=== PATIENT | female | born 1985 | race Caucasian/White ===

== ENCOUNTER 2023-12-11 12:34 | Outpatient (REF) | payer SELFPAY ==
[2023-12-11 13:20] LABS: MANUAL DIFF FLAG NO
[2023-12-11 13:49] LABS: Basophils Absolute Auto 0.1 X10*3/uL (0.0-0.2); Basophils Percent Auto 0.9 % (0-2); Eosinophils Absolute Auto 0.1 X10*3/uL (0.0-0.4); Eosinophils Percent Auto 0.8 % (0-4); Hematocrit 38.6 % (37.0-47.0); Hemoglobin 12.3 g/dl (12.0-16.0); Imm Gran Abs Auto 0.02 X10*3/uL (0.00-0.03); Imm Gran Pct Auto 0.2 % (0.0-0.4); Lymphocytes Absolute Auto 2.8 X10*3/uL (1.2-4.9); Lymphocytes Percent Auto 33.4 % (20-40); Mean Corpuscular HGB Conc 31.9 g/dl (31.0-35.0); Mean Corpuscular Hemoglobin 28.7 pg (27.0-33.0); Mean Platelet Volume 10.6 fL (9.4-12.3); Monocytes Absolute Auto 0.5 X10*3/uL (0.1-1.2); Monocytes Percent Auto 5.6 % (2-11); Neutrophils Percent Auto 59.1 % (45-73); Platelet Count 287 X10*3/uL (160-400); Red Blood Count 4.29 X10*6/uL (4.20-5.50); Red Cell Distribution Width 13.5 % (11.0-16.0); White Blood Count 8.5 X10*3/uL (4.8-10.8)
[2023-12-11 14:08] LABS: Estimated Average Glucose 100 mg/dL; Hemoglobin A1c % 5.1 % (<6.0)
[2023-12-11 14:22] LABS: Alanine Aminotransferase 10 U/L (0-31); Albumin Level 4.2 g/dL (3.5-5.0); Alkaline Phosphatase 82 U/L (39-117); Anion Gap 11 (12-20); Aspartate Amino Transferase 15 U/L (5-31); Bilirubin Total 0.4 mg/dL (0.0-1.0); Blood Urea Nitrogen 10 mg/dL (9-16); Calcium 9.1 mg/dL (8.4-10.2); Carbon Dioxide 26 mmol/L (22-29); Chloride 108 mmol/L (96-108); Cholesterol 160 mg/dL (<200); Estimated Glomerular Filt Rate > 60; Glucose Random 82 mg/dL (60-115); HDL Cholesterol 49 mg/dL (>40); LDL Cholesterol Calculated 99 mg/dL (<100); Sodium 141 mmol/L (135-145); TSH reflex Free T4 1.38 uIU/mL (0.32-4.0); Total Protein 7.5 g/dL (6.5-8.0); Triglycerides 62 mg/dL (<150); Vitamin D 25-OH Total 36.5 ng/mL (>30)
[2023-12-11 14:49] LABS: Folate 11.8 ng/mL (> or = 4.0); Vitamin B12 472 pg/mL (200-900)
[2023-12-12 07:38] LABS: HBS Num1 0.41 mIU/mL (0-7.99); HBc Num1 0.18 S/CO (0.00-0.79); HBsAGNum1 0.27 S/CO (0.00-0.99); HIV AB/AG Nonreactive (Nonreactive); HIV Num 1 0.07 S/CO (0.00-0.99); Hepatitis B Core Antibody Nonreactive (Nonreactive); Hepatitis B Surface Antigen Negative (Negative); ~Hepatitis B Surface Antibody NONREACTIVE (Nonreactive)
[2023-12-13 06:39] LABS: RPR Rapid Plasma Reagin NON-REACTIVE (NON-REACTIVE)
[2023-12-13 06:42] LABS: HCV Log PCR <1.18 NOT DETECTED Log IU/mL (NOT DETECTED); HepC Viral Load <15 NOT DETECTED IU/mL (NOT DETECTED)
== END 2023-12-11 12:35 | disposition home or self-care (01) ==
LOC: HO.HHCL 12:34
PROVIDERS: Visit Provider Registered Nurse
DX: Z00.00 Encounter for general adult medical examination without abnormal findings (principal); R20.0 Anesthesia of skin; R20.2 Paresthesia of skin; Z13.1 Encounter for screening for diabetes mellitus; Z13.89 Encounter for screening for other disorder
CPT/HCPCS: 36415; 80053; 80061; 82306; 82607; 82746; 83036; 83735; 84443; 85025; 86592; 86704; 86706; 87340; 87389; 87522

== ENCOUNTER 2024-06-10 12:45 | Outpatient (REF) | payer MEDICAID, SELFPAY ==
[2024-06-11 07:11] LABS: CT PCR NOT DETECTED (Not Detect.); NG PCR NOT DETECTED (Not Detect.)
[2024-06-11 08:26] LABS: Bacterial Vaginosis PCR NEGATIVE (Negative); Candida Group PCR NOT DETECTED (Not Detect); Candida glab krusei PCR NOT DETECTED (Not Detect); Trichomonas vaginalis PCR NOT DETECTED (Not Detect)
== END 2024-06-10 12:46 | disposition home or self-care (01) ==
LOC: HO.CHCLNP 12:45
PROVIDERS: Visit Provider Registered Nurse
DX: N93.0 Postcoital and contact bleeding (principal)
CPT/HCPCS: 0352U; 87491; 87591

== ENCOUNTER 2024-06-10 15:36 | Outpatient (REF) | payer MEDICAID, SELFPAY ==
[2024-06-10 18:02] LABS: Appearance Urine Clear; Color Urine Yellow; Glucose Urine UA Negative (Negative); Leukocyte Esterase Urine Trace (Negative); Nitrite Urine Negative (Negative); PH 6.5 (5.0-9.0); Specific Gravity - Urine 1.025 (1.005-1.025); UMIC TRIGGER UACC YES; Urine Blood Negative (Negative); Urine Ketones Negative (Negative); Urine Protein Negative (Neg-Trace)
[2024-06-10 18:17] LABS: Bacteria Urine 1+ (None Seen); Hyaline Casts Urine 0-2 /LPF (0-2); RBC Urine 0-2 /HPF (0-2); UACC Culture Trigger YES
== END 2024-06-10 15:37 | disposition home or self-care (01) ==
LOC: HO.CHCLNP 15:36
PROVIDERS: Visit Provider Registered Nurse
DX: R39.9 Unspecified symptoms and signs involving the genitourinary system (principal)
CPT/HCPCS: 81001; 87086

== ENCOUNTER 2025-02-18 09:04 | Outpatient (REF) | payer MEDICAID, OTHER, SELFPAY ==
--- OUTSIDE RECORDS SUMMARY | 2025-02-17 15:00 | XMS_ITS | Encounter Summary ---
Author Organization [employer] Address [address] [facility] 7t [place] [address] Care Team Providers Care Field Professional Name Role Phone Coral Best SEEMA Primary Care Provider [phone] Reason for Visit * Reason Comments Dental Pain Encounter Details Date Type Department Care Team ([facility] st Contact Info) Description 02/17/2025 3:00 PM EDT Office Visit Kimber [facility] Dental [address] [place] [address] Malina Potts LLD [address] [place] [address] Arrived Social History Tobacco Use Types Packs/Day Years Used Date Smoking Tobacco: Never Smokeless Tobacco: Never Depression Answer Date Recorded Patient Health Questionnaire-9 Score 4 07/11/2024 Patient Health Questionnaire-9 Score 4 07/11/2024 Last PHQ-9: Questionnaire Data Not on file 0 07/11/2024 Housing Stability Answer Date Recorded What is your housing situation today? I have jessica petersen 06/10/[address] you li ve. Do you have problems with any of the following? None of the above 06/10/2024 Food Insecurity Answer Date Recorded Within the past 12 months, y ou worried that your food would run out before you got money to buy more: Never True 06/10/2024 Within the past 12 months,th e food you bought just didn't last and you didn't have enough money to get more: Never True Transportation Answer Date Recorded In the past 12 months, has l ack of transportation kept you from medical appts, meetings, work or from getting things needed for daily living? No 06/10/2024 Utilities Answer Date Recorded In the past 12 months, has t he electric, gas, oil or water company threatened to shut off services in your home? No 06/10/2024 Depression Answer Date Recorded Patient Health Questionnaire-2 Score 2 07/11/2024 Internet Access Answer Date Recorded Internet Access Q1 Yes 06/10/2024 Internet Access Q2 Not on file 06/10/2024 Comments Unknown Sex and Gender Information Value Date Recorded Sex Assigned at Female 04/11/2022 10:30 AM EDT Legal Sex Female 10:30 AM EDT Gender Identity Female 04/11/2022 10:30 AM EDT Sexual Orientation Straight 04/11/2022 10 :30 AM EDT documented as of this encounter Last Filed Vital Signs Vital Sign Reading Time Taken Comments Blood Pressure 125/85 02/17/2025 2:36 PM EDT Pulse 65 02/17/2025 2:36 PM EDT Temperature - - Respiratory Rate - - Oxygen Saturation - - Inhaled Oxygen Concentration - - Weight - - Height - - Body Mass Index - - documented in this encounter Progress Notes * SOHAIL Solorzano - 02/17/2025 3:00 PM EDT Regulatory guidelines from CDC, DPH, OSHA and ADA were followed during the visit. Emergency Exam Tooth # 14 Patient presents with PAIN Probable cause - Periapical abscess Pain scale of 3 Number of Xray's taken none due, pt recently evaluated at [facility] Patient is currently taking OTC Pain medicine and antibiotic for this condition. Area has been a problem for a week Patient mostly concerned to extraction planned for tooth #14 and how her denture would stay in mouth for partial clasps on tooth #14, instructions on how to use adhesive and was placed on the partialwhile in the office Dismiss Note Oven Builder: Dental Care and patient education provided and emphasized Referral No Oral cancer screening: No significant oral pathology noted. Patient left understanding directions for care Phase I Completed? No Came to visit with : N/A Next Visit - FMX Exam documented in this encounter Plan of Treatment Upcoming Encounters Date Type Department Care Team (Late st Contact Info) Description 02/24/2025 2:45 PM EDT Office Visit [facility] CHC MED & PEDS [address] [place] [address] Coral Best FNP [address] [place] [address] 04/04/2025 9:00 AM EDT Office Visit [facility] ADULT DENTAL [address] [place] [address] Reji Kulkarni DDS [address] [place] [address] documented as of this encounter Procedures Procedure Name Priority Date/Time Associated Diagnosis Comments LIMITED ORAL EVALUATION - PROBLEM FOCUSED Routine 02/17/2025 3:00 PM EDT CASE PRESENTATION, DETAILED AND EXTENSIVE TREATMENT PLANNING Routine 02/17/2025 3:00 PM EDT documented in this encounter Visit Diagnoses Not on filedocumented in this encounter Additional Health Concerns Assessment Noted Time PHQ-9 Depression Total Score: 4 07/11/19 25 9:09 AM EST documented as of this encounter Care Teams Field Professional Relationship Specialty Start Date End Date Coral Best FNP [address] [place] [phone] PCP - General Family Medicine 02/04/22 documented as of this encounter
--- NOTE | 2025-02-18 09:09 | EMG_ITS ---
Chief complaint: Numbness and tingling of hands Reason for referral: NCV/ EMG study Referred by: SEEMA Martinez Procedure done: NCV and EMG was performed on bilateral upper extremities. Bilateral median and ulnar motor and sensory studies were performed bilateral radial sensory studies were performed bilateral median and lateral antecubital brachial sensory studies were performed an EMG needle examination was performed. Impression: Mild left ulnar neuropathy across elbow MTDD
--- OUTSIDE RECORDS SUMMARY | 2025-02-18 10:25 | XMS_ITS | Encounter Summary ---
Author Organization [facility] Address [address] [facility] [address] [place] [phone] Phone Care Team Providers Care Food Scientist Name Role Phone Bairon Narayanan MD Primary Care Provider Pcp, Unknown Primary Care Provider Unavailabl e Encounter Details Date Type Department Care Team (Late st Contact Info) Description 01/14/2020 Procedure [facility], Ct Scan - [address] [address] Social History Tobacco Use Types Packs/Day Years Used Date Smoking Tobacco: Never Smokeless Tobacco: Never Alcohol Use Standard Drinks/Week Comments Never 0 (1 standard drink = 0.6 oz pur e alcohol) Comments Unknown Sex and Gender Information Value Date Recorded Sex Assigned at Female 09/14/2019 8:47 AM EDT Legal Sex Female 3:46 PM EDT Gender Identity Female 09/14/2019 8:47 AM EDT Sexual Orientation Straight 01/13/2020 11 :46 PM EDT documented as of this encounter Plan of Treatment Not on file documented as of this encounter Visit Diagnoses Not on filedocumented in this encounter Additional Health Concerns Infection Onset Date Last Indicated Resolved Time CoV-Risk 12/15/2024 12/15/2024 12/26/2024 1:21 AM EDT documented as of this encounter Care Teams Food Scientist Relationship Specialty Start Date End Date Bairon Narayanan MD [address] [place] [address], [address] [place] [address] PCP - General Internal Medicine 10/18/17 12/07/21 Pcp, Unknown PCP - General 12/08/21 documented as of this encounter Additional Source Comments The information contained in this document represents components of the legal health record. It is not the complete legal health record.[facility]
--- OUTSIDE RECORDS SUMMARY | 2025-02-18 10:25 | XMS_ITS | Clinical Summary ---
Author Organization [employer] Address [address] [facility] 7t [place] [address] Care Team Providers Care Clinical Unit Educator Name Role Phone Coral Best SEEMA Primary Care Provider [phone] Allergies No known active allergies Medications * This document contains information received from the source organization and may not represent a complete record from that organization. amitriptyline (Elavil) 10 MG tabletIndication s:Acute non intractable tension-type headache Take 1 tablet (10 mg) by mouth at bedtime. 90 tablet 3 5 Active ibuprofen 400 MG tabletIndication s:Syncope, unspecified syncope type Take 1 tablet (400 mg) by mouth every 8 (eight) hours if needed (pain or fever). 90 tablet 1 5 12/24/19 26 Active acetaminophen (Tylenol) 500 MG tabletIndication s:Syncope, unspecified syncope type Take 1-2 tablets (500-1,000 mg) by mouth every 8 (eight) hours if needed (pain or fever). 90 tablet 1 5 12/24/19 26 Active amoxicillin-clav ulanate (Augmentin) 875-125 MG tablet Take 1 tablet by mouth 2 times daily for 7 days. 14 tablet 5 02/15/20 25 acetaminophen (Tylenol) 500 MG tablet Take 1 tablet (500 mg) by mouth every 8 (eight) hours if needed for mild pain for up to 7 days. 21 tablet 5 02/15/20 25 ibuprofen 600 MG tablet Take 1 tablet (600 mg) by mouth every 8 (eight) hours if needed for mild pain for up to 7 days. 21 tablet 08/2902/15/20 25 Active Problems Problem Noted Date Diagnosed Date Chronic back pain 02/07/2025 Lumbago with sciatica, left side 02/07/2025 Other chronic pain 02/07/2025 Healthcare maintenance 12/14/2023 Overview (06/13/2024): - Pap: NILM, HPV neg Jul 2021 - Mammo: routine screening starting at 40 y/o - Colonoscopy: routine screening starting at 45 y/o Assessment & Plan (06/13/2024 6:52 PM EST): -Cardiopulmonary exam WNL -Encouraged healthy lifestyle habits including routine physical exercise and diet rich in fruits and vegetables Assessment & Plan (12/14/2023 4:32 PM EDT): -Routine lab work ordered today including asymptomatic STI screening and additional vitamin/mag screening for numbness/tingling Acute non intractable tension-type headache 06/14 Overview (12/14/2023): Amitriptyline 10mg nightly Assessment & Plan (06/13/2024 6:49 PM EST): - Well controlled with current regimen Assessment & Plan (12/14/2023 4:25 PM EDT): Previously well controlled on therapy above. Restart amitriptyline, reviewed med safety and SE. Obesity 09/11/2017 Chronic low back pain 12/19/2016 Adjustment disorder with depressed mood 05/09/20 16 Resolved Problems Problem Noted Date Diagnosed Date Resolved Date Low self-esteem 07/24/2024 12/23/2024 Numbness and tingling in both hands 12/14/2023 06/13/2024 Assessment & Plan (12/14/2023 4:28 PM EDT): -Intermittent pain associated with numbness and tingling in fingers of bilateral hands -Positive Tinel on exam -Suspect CTS. Discussed next steps for eval/tx, but pt limited d/t insurance. She will call insurance for coverage/cost estimate of EMG and let us know if interested in pursuing -DME rx for bilateral wrist splints sent 12/14/23 for pt to use at night -Continue symptomatic management Acute stress disorder 07/11/20222024 Assessment & Plan (06/13/2024 6:51 PM EST): -History of depression/anxiety. No acute concerns today. Scheduled for BE in person. Assessment & Plan (12/14/2023 4:26 PM EDT): -History of stress/anxiety. No acute concerns. Time did not permit for BE in office today, referral placed to [facility] to schedule BE for further eval. Cough in adult 07/11/2022 12/14/2023 Encounters Date Type Department Care Team Description 02/17/2025 3:00 PM EDT Office Visit Kimber [facility] Dental [address] [place] [address] Malina Potts LLD Arrived 02/14/2025 Patient Outreach [facility] MEDICINE [address] [place] [address] Coral Best FNP Pre-visit Planning (SDOH screening negative and Tobacco screening negative) 02/07/2025 1:00 PM EDT Office Visit [facility] ADULT DENTAL [address] [place] [address] Reji Kulkarni DDS 12/23/2024 9:30 AM EDT Office Visit [facility] MED & PEDS [address] [place] [address] Coral Best FNP Syncope, unspecified syncope type (Primary Dx); Numbness and tingling of hand 12/23/2024 Travel 12/18/2024 Telephone [facility] MED & PEDS [address] [place] [address] Coral Best FNP Nurse Triage from Last 3 Months Immunizations Immunization Administration Dates Next Due Hep B, adult 06/26/2024,02/05/2024,12/25/2023 Influenza Injectable Quadriv alant Preservative Free IIV4 MDCK 04/09/2019 Influenza injectable quadriv alent IIV4 with preservative 05/09/2016 Influenza injectable quadriv alent preservative free 03/11/2021,06/14/2017 Influenza, IIV3, injectable 08/21/2018 Tdap 06/14/2017 Family History Medical History Relation Name Comments Diabetes Father Diabetes Father's Sister Diabetes Mother Hypertension Mother Relation Name Status Comments Father Father's Sister Mother Social History Tobacco Use Types Packs/Day Years Used Date Smoking Tobacco: Never Smokeless Tobacco: Never Tobacco Cessation:Counseling Given: Not Answered Depression Answer Date Recorded Patient Health Questionnaire-9 [...] Orientation Straight 04/11/2022 10 :30 AM EDT Last Filed Vital Signs Vital Sign Reading Time Taken Comments Blood Pressure 125/85 02/17/2025 2:36 PM EDT Pulse 65 02/17/2025 2:36 PM EDT Temperature 36.8 C (98.2 F) 12/23/2024 9:00 AM EDT Respiratory Rate 20 12/23/2024 9:00 AM EDT Oxygen Saturation 99% 12/23/2024 9:00 AM EDT Inhaled Oxygen Concentration - - Weight 73.5 kg (162 lb) 12/23/2024 9:00 AM EDT Height 154.9 cm (5' 1 ) 12/23/2024 9:00 AM EDT Body Mass Index 30.61 12/23/2024 9:00 AM EDT Plan of Treatment Upcoming Encounters Date Type Department Care Team (Late st Contact Info) Description 02/24/2025 2:45 PM EDT Office Visit [facility] CHC MED & PEDS [address] [place], [place] [phone] Coral Best, DINKEY ENGINE OPERATOR [address] [place], [place] [phone] 04/04/2025 9:00 AM EDT Office Visit [facility] ADULT DENTAL [address] [place] [address] Reji Kulkarni, DDS [address] [place] [address] Health Maintenance Due Date Last Done Comments Disability Screening 1985 Family Planning (PISQ) 01/30/2000 HPV Vaccines (1 - 3-dose series) 01/30/2000 Dental Oral Exam 08/20/2019 02/18/2019, 11/2018, 01/22/2018, Additional history exists Dental Prophylaxis 08/20/2019 02/18/2019, 0 08/15/2018, 2018, Additional history exists Dental X-Ray: Full Mouth 01/23/2021 01/22/2018, 0501/2017 Mammogram 2025 COVID-19 Vaccine ( season) 2025 11/26/2020, 11/04/2020 Influenza Vaccine (#1) 2025 , 04/09/2019, 08/21/2018, Additional history exists Alcohol/Substance Use Screening 06/10/2025 06/10/2024 Depression Screening 07/11/2025 07/11/2024, 07/11/19 Tobacco Screening 02/07/2026 02/07/2025 Dental X-Ray: Bitewings 02/08/2026 02/08/20 25, 02/18/2019, 01/22/2018, Additional history exists SDOH Screening 02/14/2026 02/14/2025 Cervical Cancer Screening 08/04/2026 HPV/Cotest 08/04/2026 08/04/2021 Pap Smear 08/04/2026 08/04/2021 DTaP/Tdap/Td Vaccines (2 - Td or Tdap) 06/14/2027 06/14/2017 Lipid Panel 12/10/2028 12/11/2023, 02/22/2021 Zoster Vaccines (1 of 2) 2035 RSV Patients and Patients Aged 60 years or older (1 - 1-dose 75+ series) 01/30/2060 HIV Screening Completed 12/11/2023, 02/22/2021 Hepatitis C Screening Completed 12/11/2023, 021 Hepatitis B Vaccines Completed 06/26/2024, 02/05/2024, 12/25/2023 HIB Vaccines Aged Out No longer eligi ble based on patient's age to complete this topic Hepatitis A Vaccines Aged Out No long er eligible based on patient's age to complete this topic IPV Vaccines Aged Out No longer eligi ble based on patient's age to complete this topic Meningococcal B Vaccine Aged Out No l onger eligible based on patient's age to complete this topic Meningococcal Vaccine Aged Out No alan nellie eligible based on patient's age to complete this topic Pneumococcal Vaccine: Pediatrics (0 to 5 Years) and At-Risk Patients (6 to 49) Years Aged Out No longer eligible based on patient's age to complete this topic RSV under 20 months Aged Out No longe r eligible based on patient's age to complete this topic Rotavirus Vaccines Aged Out No longer eligible based on patient's age to complete this topic Procedures Procedure Name Priority Date/Time Associated Diagnosis Comments CASE PRESENTATION, DETAILED AND EXTENSIVE TREATMENT PLANNING Routine 02/17/2025 3:00 PM EDT LIMITED ORAL EVALUATION - PROBLEM FOCUSED Routine 02/17/2025 3:00 PM EDT CASE PRESENTATION, DETAILED AND EXTENSIVE TREATMENT PLANNING Routine 02/07/2025 1:00 PM EDT BITEWING - SINGLE RADIOGRAPHIC IMAGE Routine 02/07/2025 1:00 PM EDT INTRAORAL - PERIAPICAL FIRST RADIOGRAPHIC IMAGE Routine 02/07/2025 1:00 PM EDT 14 PALLIATIVE (EMERGENCY) TREATMENT OF DENTAL PAIN - MINOR PROCEDURE Routine 02/07/2025 1:00 PM EDT HEPATITIS C VIRAL RNA, QUANTITATIVE, REAL-TIME PCR Routine 12/11/2023 12:41 PM EDT Routine health maintenance HIV 1/2 ANTIGEN/ANTIBODY, FOURTH GENERATION W/RFL Routine 12/11/2023 12:41 PM EDT Routine health maintenance LIPID PANEL, STANDARD Routine 12/11/2023 12:41 PM EDT Routine health maintenance THINPREP IMAGING PAP AND HPV MRNA E6/E7, WITH CT/NG, TRICHOMONAS Routine 08/04/2021 12:00 AM EST PROPHYLAXIS - ADULT Routine 02/18/2019 1 2:00 AM EDT PERIODIC ORAL EVALUATION - ESTABLISHED PATIENT Routine 02/18/2019 12:00 AM EDT INTRAORAL - COMPLETE SERIES OF RADIOGRAPHIC IMAGES Routine 01/22/2018 12:00 AM EDT from Last 3 Months or Most Recently Relevant to Health Maintenance Results * Hepatitis C Viral RNA, Quantitative, Real-Time PCR (12/11/2023 12:41 PM EDT) Hepatitis C Viral Load <15 NOT DETECTED NOT DETECTED IU/mL [facility] HCV Log PCR <1.18 NOT DETECTED NOT DETECTED Log IU/mL [facility] Comment:For additional infor mation, please refer tohttp://education.ShareRoot/faq/RLE54s9(This link is being provided for informational/educational purposes only.)THIS TEST WAS PERFORMED AT:[facility] [facility] [place] [phone] CARDENAS MD Blood 12/11/2023 12:4 1 PM EDT 12/11/2023 1:[address] [facility] LAB BLOOD ORDERABLES Final Res ult Performing Organization Address City/[facility]/ZIP Co de Phone Number [facility] [address] [place] [address] [phone] * HIV-1/2 Antigen and Antibodies, Fourth Generation, with Reflexes (12/11/2023 12:41 PM EDT) HIV AB/AG Nonreactive Nonreactive [facility] Comment:HIV-1 p24 Ag and/or HIV-1/HIV-2 Ab not detected.A test result that is nonreactive does not exclude thepossibility of exposure to or infection with HIV-1 and/orHIV-2. Nonreactive results in this assay for individualswith prior exposure to HIV-1 and/or HIV-2 may be due toantigen and antibody levels that are below the limit ofdetection of this assay.The Needcheck HIV Ag/Ab Combo assay result andsupplemental assay results should be interpreted inconjunction with the patient's clinical presentation,history and other laboratory results. If the results areinconsistent with clinical evidence, additional testing issuggested to confirm the result. Blood Venous blood specimen / Unknown 12/11/2023 12:41 PM EDT 12/11/2023 1:[address] [facility] BLOOD ORDERABLES Final Res ult Performing Organization Address City/[facility]/ZIP Co de Phone Number [facility] [address] [place] [phone] [phone] * Lipid Panel, Standard (12/11/2023 12:41 PM EDT) Triglycerides 62 <150 mg/dL [facility] Comment:Desirable Triglyceri de: less than 150 mg/dLBorderline High Triglyceride 150-199 mg/dLHigh Triglyceride: 200-499 mg/dLVery High Triglyceride: greater than or equal to 5OO mg/dL Cholesterol 160 <200 mg/dL [facility] Comment:Desirable Cholestero l: less than 200 mg/dLBorderline High Cholesterol: 200-239 mg/dLHigh Cholesterol: greater than 239 mg/dL LDL Cholesterol Calculated 99 <100 mg/dL [facility] Comment:Desirable LDL: less than 100 mg/dLNear Optimal/Above Optimal LDL: 110- 129 mg/dLBorderline High LDL: 130-159 mg/dLHigh LDL: 160-189 mg/dLVery High LDL: greater than or equal to 190 mg/dL HDL Cholesterol 49 >40 mg/dL [facility] Comment:Desirable HDL: great er than 40 mg/dL Note: This HDL assay may give artificially low results in patients with liver disease. Blood Venous blood specimen / Unknown 12/11/2023 12:41 PM EDT 12/11/2023 1:18 PM EDT us Coral Best DINKEY ENGINE OPERATOR LAB BLOOD ORDERABLES Final Res ult [facility] [address] [place] [phone] * THINPREP TIS PAP AND HPV mRNA E6/E7, CT/NG, TRICH (08/04/2021 12:00 AM EST) Chlamydia trachomatis RNA, TMA, Urogenital NOT DETECTED NOT DETECTED [facility] Clinical Information: None given [facility] COMMENT SEE COMMENT [facility] Comment: The analytical performance characteristics of this assay, when used to test SurePath(TM) specimens have been determined by [employer]. The modifications have not been cleared or approved by the FDA. This assay has been validated pursuant to the CLIA regulations and is used for clinical purposes. For additional information, please refer to https://education.ShareRoot/faq/DSR681 (This link is being provided for information/ educational purposes only.) COMMENT SEE COMMENT [facility] Comment: EXPLANATORY NOTE: The Pap is a screening test for cervical cancer. It is not a diagnostic test and is subject to false negative and false positive results. It is most reliable when a satisfactory sample, regularly obtained, is submitted with relevant clinical findings and history, and when the Pap result is evaluated along with historic and current clinical information. COMMENT: This Pap test has been evaluated with computer assisted technology. [facility] Hearing Officer: SEE COMMENT [facility] Comment: MSM, CT(ASCP) CT screening location: [address] [address] HPV nRNA E6/E7 Not Detected Not Detected [facility] Comment: Methodology: Heel Shaver-Mediated Amplification This assay detects E6/E7 viral messenger RNA (mRNA) from 14 high-risk HPV types (16,18,31,33,35,39,45,51,52,56,58,59,66,68). The analytical performance characteristics of this assay have been determined by [employer]. The modifications have not been cleared or approved by the FDA. This assay has been validated pursuant to the CLIA regulations and is used for clinical purposes. For additional information, please refer to http://[employer].ShareRoot/faq/BMW177x0 (This link if provided for information/ educational purposes only.) Interpretation/Re sult: Negative for intraepithelial lesion or malignancy. [facility] LMP: NONE GIVEN [facility] Neisseria gonorrhoeae RNA, TMA, Urogenital NOT DETECTED NOT DETECTED [facility] Prev. BX: NONE GIVEN [facility] Prev. PAP: NONE GIVEN [facility] SOURCE: None given [facility] Statement Of Adequacy: SEE COMMENT [facility] Comment: Satisfactory for evaluation. Endocervical/transformation zone component present. Age and/or menstrual status not provided Trichomonas vaginalis, QL, TMA, PAP Vial NOT DETECTED NOT DETECTED [facility] Comment: The analytical performance characteristics of this assay have been determined by [employer]. The modifications have not been cleared or approved by the FDA. This assay has been validated pursuant to the CLIA regulations and is used for clinical purposes. For additional information, please refer to http://[employer].ShareRoot/ faq/Trichomonastma (This link is being provided for information/ educational purposes only.) 08/04/2021 Maryuri Patel NP LAB PATHOLOGY ORDERABLES Final Result [place] [id number] [place] [phone], from Last 3 Months or Most Recently Relevant to Health Maintenance Insurance [facility] [id number] [facility] [place] [place] Address: [address] [address] [place] [address] DENTAL-[facility] MEDICAID LIMITED ADULT DENTAL - HSN FULL (MEDICAID) DENTAL-[facility] MEDICAID LIMITED ADULT Care Teams Clinical Unit Educator Relationship Specialty Start Date End Date Coral Best FNP [address] [place] [phone] PCP - General Family Medicine 02/04/22
--- OUTSIDE RECORDS SUMMARY | 2025-02-18 10:25 | XMS_ITS | Encounter Summary ---
Author Organization [facility] Address [address] [place] [phone] Phone Care Team Providers Care Head Sampler Name Role Phone Pcp, Unknown Primary Care Provider Unavailabl e Encounter Details Date Type Department Care Team (Late st Contact Info) Description 12/14/2024 Procedure Pass [facility], Ct Scan - [facility] [address] [place] [address] Social History Tobacco Use Types Packs/Day Years Used Date Smoking Tobacco: Never Smokeless Tobacco: Never Alcohol Use Standard Drinks/Week Comments Never 0 (1 standard drink = 0.6 oz pur e alcohol) Education Answer Date Recorded Are you interested in more education? Not on rivas e 10/07/2022 Are you concerned about learning? Not on file 10/07/2022 No 10/07/2022 No 10/07/2022 Digital Access Answer Date Recorded No 11/05/2022 No 11/05/2022 No 11/05/2022 Reliable internet access at home? Not on file 11/05/2022 Device with a working camera? Not on file Intimate Partner Violence Answer Date R ecorded Are you denied basic needs s uch as food, clothing, or medical care? No 12/14/2024 In the past 12 months have y ou been in a relationship with a person who hurts, threatens, or tries to control you? No 12/14/2024 Are you denied basic needs s uch as food, clothing, or medical care? No 12/14/2024 In the past 12 months have y ou been in a relationship with a person who hurts, threatens, or tries to control you? No 12/14/2024 Comments Unknown Sex and Gender Information Value Date Recorded Sex Assigned at Female 09/14/2019 8:47 AM EDT Legal Sex Female 3:46 PM EDT Gender Identity Female 09/14/2019 8:47 AM EDT Sexual Orientation Straight 01/13/2020 11 :46 PM EDT documented as of this encounter Functional Status * Calculated C-SSRS Risk Score (Lifetime/Recent) Answer Date of Assessment Author No Risk Indicated 12/14/2024 10:19 PM EDT Shannan Garcia RN * [place] Suicide Severity Rating Scale (Screener/Recent Self-Report) Question Answer Date of Assessment Author 1. Wish to be (Past 1 Month) No 025 10:19 PM EDT Shannan Mendoza RN 2. Non-Specific Active Suici richy Thoughts (Past 1 Month) No 12/14/2024 10:19 PM EDT Rico Mendoza RN 6. Suicidal Behavior (Lifetime) No 10:19 PM EDT Shannan Mendoza RN documented as of this encounter Plan of Treatment Not on file documented as of this encounter Visit Diagnoses Not on filedocumented in this encounter Additional Health Concerns Infection Onset Date Last Indicated Resolved Time CoV-Risk 12/15/2024 12/15/2024 12/26/2024 1:21 AM EDT documented as of this encounter Care Teams Head Sampler Relationship Specialty Start Date End Date Pcp, Unknown PCP - General 12/08/21 documented as of this encounter Additional Source Comments The information contained in this document represents components of the legal health record. It is not the complete legal health record.[facility]
--- OUTSIDE RECORDS SUMMARY | 2025-02-18 10:25 | XMS_ITS | Encounter Summary ---
Author Organization [facility] Address [address] [place] [phone] Phone Care Team Providers Care Clothing And Textiles Teacher Name Role Phone Pcp, Unknown Primary Care Provider Unavailabl e Encounter Details Date Type Department Care Team (Late st Contact Info) Description 12/14/2024 Procedure Pass [facility], Ct Scan - [facility] [address] [place] [address] Social History Tobacco Use Types Packs/Day Years [...] 10:19 PM EDT Shannan Garcia RN * [place] Suicide Severity Rating Scale (Screener/Recent Self-Report) Question [...] documented as of this encounter Care Teams Clothing And Textiles Teacher Relationship Specialty Start Date End Date Pcp, Unknown PCP - General 12/08/21 documented as of this encounter Additional Source Comments The information contained in this document represents components of the legal health record. It is not the complete legal health record.[facility]
--- OUTSIDE RECORDS SUMMARY | 2025-02-18 10:26 | XMS_ITS | Encounter Summary ---
Author Organization [facility] Address [address] [place] [phone] Phone Care Team Providers Care Director Of Family Service Center Name Role Phone Pcp, Unknown Primary Care Provider Unavailabl e Encounter Details Date Type Department Care Team (Late st Contact Info) Description 12/14/2024 Procedure Pass [facility], Ct Scan - [facility] [address] [place] [address] Social History Tobacco Use Types Packs/Day Years [...] 10:19 PM EDT Shannan Garcia RN * [place] Suicide Severity Rating Scale (Screener/Recent Self-Report) Question [...] documented as of this encounter Care Teams Director Of Family Service Center Relationship Specialty Start Date End Date Pcp, Unknown PCP - General 12/08/21 documented as of this encounter Additional Source Comments The information contained in this document represents components of the legal health record. It is not the complete legal health record.[facility]
--- OUTSIDE RECORDS SUMMARY | 2025-02-18 10:26 | XMS_ITS | Encounter Summary ---
Author Organization [employer] Address [address] [facility] [address] [facility] [address] [place] [address] Care Team Providers Care Poker Room Manager Name Role Phone Coral Best Primary Care Provider [phone] Reason for Visit * Reason Comments Pre-visit Planning SDOH screening negat talisha and Tobacco screening negative Encounter Details Date Type Department Care Team ([facility] st Contact Info) Description 02/14/2025 Patient Outreach [facility] MEDICINE [address] [place] [address] Coral Best FNP [address] [place] [address] Pre-visit Planning (SDOH screening negative and Tobacco screening negative) Social History Tobacco Use Types Packs/Day Years [...] AM EDT documented as of this encounter Progress Notes * Hector Lopez - 02/14/2025 12:49 PM EDT CC Hector cohn successful outbound call to patient for pre-visit planning. Patient name and confirmed. Patient confirms appt date and time, and has transportation arrangements. Biggest concern for appointment at this time is no concerns. Patient advised to bring to appointment a photo id and insurance card. Appropriate screenings completed in anticipation of appointment. documented in this encounter Plan of Treatment Upcoming Encounters Date Type Department Care Team ([facility] st Contact Info) Description 02/24/2025 2:45 PM EDT Office Visit [facility] CHC MED & PEDS [address] [place] [address] Coral Best FNP [address] [place] [address] 04/04/2025 9:00 AM EDT Office Visit [facility] ADULT DENTAL [address] [place] [address] Reji Kulkarni DDS [address] [place] [address] documented as of this encounter Visit Diagnoses Not on filedocumented in this encounter Additional Health Concerns Assessment Noted Time PHQ-9 Depression Total Score: 4 07/11/19 25 9:09 AM EST documented as of this encounter Care Teams Poker Room Manager Relationship Specialty Start Date End Date Coral Best FNP [address] [place] [address] PCP - General Family Medicine 02/04/22 documented as of this encounter
--- OUTSIDE RECORDS SUMMARY | 2025-02-18 10:26 | XMS_ITS | Encounter Summary ---
Author Organization [facility] Address [address] [facility] [address] [place] [address] Care Team Providers Care Manufacturing Maintenance Mechanic Name Role Phone Coral Best Primary Care Provider [phone] Encounter Details Date Type Department Care Team (Latest Contact Info) Description 02/18/2019 Abstract [facility] Dental, Provider, DDS Social History Tobacco Use Types Packs/Day Years Used Date Smoking Tobacco: Never Assessed Comments Unknown Sex and Gender Information Value Date Recorded Sex Assigned at Female 04/11/2022 10:30 AM EDT Legal Sex Female 10:30 AM EDT Gender Identity Female 04/11/2022 10:30 AM EDT Sexual Orientation Straight 04/11/2022 10 :30 AM EDT documented as of this encounter Plan of Treatment Upcoming Encounters Date Type Department Care Team ( st Contact Info) Description 02/24/2025 2:45 PM EDT Office Visit [facility] CHC MED & PEDS [address] [place] [address] Coral Best FNP [address] [place] [address] 04/04/2025 9:00 AM EDT Office Visit [facility] ADULT DENTAL [address] [place] [address] Reji Kulkarni DDS [address] [place] [address] documented as of this encounter Visit Diagnoses Not on filedocumented in this encounter Care Teams Manufacturing Maintenance Mechanic Relationship Specialty Start Date End Date Coral Best FNP [address] [place] [address] PCP - General Family Medicine 02/04/22 documented as of this encounter
--- OUTSIDE RECORDS SUMMARY | 2025-02-18 10:26 | XMS_ITS | Encounter Summary ---
Author Organization [employer] Address [address] [facility] [address] [place] [address] Care Team Providers Care Blood Bank Technologist Name Role Phone Coral Best Primary Care Provider [phone] Encounter Details Date Type Department Care Team (Latest Contact Info) Description 08/15/2018 Abstract [facility] Dental, Provider, DDS Social [...] Description 02/24/2025 2:45 PM EDT Office Visit [facility] CHC MED & PEDS [address] [place] [address] Coral Best FNP [address] [place] [address] 04/04/2025 9:00 AM EDT Office Visit [facility] ADULT DENTAL [address] [place] [address] Reji Kulkarni DDS [address] [place] [address] documented as of this encounter Visit Diagnoses Not on filedocumented in this encounter Care Teams Blood Bank Technologist Relationship Specialty Start Date End Date Coral Best FNP [address] [place] [address] PCP - General Family Medicine 02/04/22 documented as of this encounter
--- OUTSIDE RECORDS SUMMARY | 2025-02-18 10:26 | XMS_ITS | Clinical Summary ---
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 Active Active Problems No known active problems Encounters Date Type Department Care Team Description 12/14/2024 10:23 PM EDT - 12/15/2024 3:30 AM EDT Emergency [facility] [address] [place] [address] Rosa Borja MD Discharge Disposition: Home or Self Care 12/14/2024 Procedure Pass [address] [address] 12/14/2024 Procedure Pass [address] [address] 12/14/2024 Procedure Pass [address] [address] from Last 3 Months Social History Tobacco Use Types Packs/Day Years [...] Orientation Straight 01/13/2020 11 :46 PM EDT Last Filed Vital Signs Vital Sign Reading Time Taken Comments Blood Pressure 127/89 12/14/2024 10:17 PM EDT Pulse 67 12/14/2024 11:00 PM EDT Temperature 37.2 C (99 F) 12/14/2024 10:17 PM EDT Respiratory Rate 22 12/14/2024 11:00 PM EDT Oxygen Saturation 100% 12/14/2024 11:00 PM EDT Inhaled Oxygen Concentration - - Weight 66.7 kg (147 lb) 12/14/2024 10:17 PM EDT Height 160 cm (5' 3 ) 12/14/2024 10:17 PM EDT Body Mass Index 26.04 12/14/2024 10:17 PM EDT Plan of Treatment Health Maintenance Due Date Last Done Comments DEPRESSION SCREENING 1997 HEPATITIS C SCREENING 2003 HIV ONE-TIME SCREENING (18-6 5 YEARS) 2003 PAP SMEAR 2006 INFLUENZA VACCINE (#1) 2025 , 06/14/2017, 05/09/2016 MAMMOGRAM 2025 COVID-19 VACCINE (3 2024-2 6 season) 2025 11/26/2020, 11/04/2020 Adult Td,Tdap Booster 06/14/2027 06/14/2017 SCREENING FOR DIABETES 12/15/2027 12/14/2024 SMOKING STATUS SCREENING (On ce After 26 Yrs) Completed 09/16/2019 HEPATITIS A VACCINES Aged Out No long er eligible based on patient's age to complete this topic HIB VACCINES Aged Out No longer eligi ble based on patient's age to complete this topic MENINGOCOCCAL VACCINES (ACWY) Aged Out No longer eligible based on patient's age to complete this topic MENINGOCOCCAL VACCINES (B) Aged Out N o longer eligible based on patient's age to complete this topic PNEUMOCOCCAL VACCINES (0-49 years) Aged Out No longer eligible b ased on patient's age to complete this topic Medical Devices Not on file Procedures Procedure Name Priority Date/Time Associated Diagnosis Comments TROPONIN STAT 12/15/2024 12:32 AM EDT URINE SEDIMENT STAT 12/15/2024 12:17 AM EDT COVID PANDEMIC RESPIRATORY VIRAL ORDER (PRO) STAT 12/15/2024 12:17 AM EDT URINALYSIS W/REFLEX URINE CULTURE STAT 12/15/2024 12:17 AM EDT URINE CULTURE Routine 12/15/2024 12:17 AM EDT ECG 12-LEAD STAT 12/14/2024 11:08 PM EDT TROPONIN Routine 12/14/2024 10:41 PM EDT HCG, SERUM QUALITATIVE STAT 12/14/2024 10:41 PM EDT ETHANOL, BLOOD STAT 12/14/2024 10:41 PM EDT MAGNESIUM STAT 12/14/2024 10:41 PM EDT BASIC METABOLIC PANEL STAT 12/14/2024 10:41 PM EDT CBC AND DIFFERENTIAL STAT 12/14/2024 10:[address] FACE WITHOUT CONTRAST Routine 12/14/2024 10:[address] CERVICAL SPINE WITHOUT CONTRAST Routine 12/14/2024 10:[address] HEAD WITHOUT CONTRAST Routine 12/14/2024 10:35 PM EDT from Last 3 Months Results * Troponin (12/15/2024 12:32 AM EDT) Only the most recent of2 resultswithin the time period is included. Troponin-T, HS Gen5 <6 0 - 9 ng/L [facility] Blood 12/15/2024 12:3 2 AM EDT 12/15/2024 12:37 AM EDT us Rosa Borja MD LAB BLOOD ORDERABLES Final R esult [address] [id number] * (ABNORMAL) Urinalysis w/reflex Urine Culture (12/15/2024 12:17 AM EDT) COLOR Yellow Yellow [facility] CLARITY HAZY [facility] GLUCOSE Negative Negative [facility] BILI Negative Negative [facility] KETONES Negative Negative [facility] SPECIFIC GRAVITY 1.010 1.005 - 1.030 [facility] BLOOD Trace(A) Negative [facility] PH 6.5 5.0 - 8.0 [facility] Protein-UA Negative Negative [facility] NITRITE Negative Negative [facility] Leukocyte esterase, ur 1+(A) Negative [facility] Urine (Urine) 12/15/2024 12: 17 AM EDT 12/15/2024 2:54 AM EDT us Rosa Borja MD URINE ORDERABLES Final Resul t Performing Organization Address [facility] Co de Phone Number [address] [address] * (ABNORMAL) Urine Culture (12/15/2024 12:17 AM EDT) Special Requests None Reflexed from [id number] 12/15/2024 3:12 AM EDT [facility] Urine Culture 10,000 to 100,000 colony forming units per mL MIXED EMMA (3 OR MORE COLONY TYPES) Culture indicates contamination . Please resubmit if necessary.(A) 12/17/2024 10:06 AM EDT [facility] Urine 12/15/2024 12:1 7 AM EDT 12/15/2024 2:54 AM EDT us Rosa Borja MD MICROBIOLOGY - GENERAL ORDER COSME Final Result Performing Organization Address [facility] Co de Phone Number [address] [address] * (ABNORMAL) Urine sediment (12/15/2024 12:17 AM EDT) WBC 11-20(A) NONE SEEN /hpf [facility] RBC 3-5(A) NONE SEEN /hpf [facility] URINE EPITHELIAL 11-20(A) NONE SEEN [facility] MUCUS 1+(A) NONE SEEN /hpf [facility] BACTERIA 1+(A) NONE SEEN /hpf [facility] 12/15/2024 12:1 7 AM EDT 12/15/2024 2:54 AM EDT us Rosa Borja MD URINE ORDERABLES Final Resul t Performing Organization Address [facility] Co de Phone Number [address] [address] * COVID Pandemic Respiratory Viral Order (PRO) (12/15/2024 12:17 AM EDT) Test Ordered Rapid COVID, Flu has been ordered [facility] Specimen Source/Descriptio n NASOPHARYNGEAL SWAB [facility] Influenza A PCR Not Detected Not Detected [facility] Influenza B PCR Not Detected Not Detected [facility] SARS-CoV 2 (COVID-19) PCR Not Detected Not Detected [facility] Comment: SARS-CoV-2 not detected Negative results do not preclude SARS-CoV-2 infection and should not be used as the sole basis for patient management decisions. Negative results must be combined with clinical observations, patient history, and epidemiological information. Other (Nasopharyngeal swab) 12/15/2024 12:17 AM EDT 12/15/2024 12:37 AM EDT us Rosa Borja MD BODY FLUIDS AND STOOLS ORDER COSME Final Result Performing Organization Address [facility] Co de Phone Number [address] [address] * ECG 12-LEAD (12/14/2024 11:08 PM EDT) Ventricular Rate EKG/MIN 67 BPM [facility] Atrial Rate 67 BPM [facility] [place] Interval 166 ms [facility] QRS Duration 82 ms [facility] QT Interval 398 ms [facility] QTC Interval 420 ms [facility] P [place] 27 degrees [facility] R Wave [place] 24 degrees [facility] T Wave [place] 9 degrees [facility] 12/14/2024 11:0 8 PM EDT 12/15/2024 11:36 AM EDT Narrative [facility] - 12/15/2024 11:36 AM EDT Normal sinus rhythm Normal ECG No previous ECGs available Confirmed by Manny SILVA ([id number]) on 12/15/2024 11:36:47 AM us Irina Mackey PA-C ECG ORDERABLES Final Resul t Performing Organization Address City/State/[facility] Co de Phone Number [email or web address] * Ethanol, blood (12/14/2024 10:41 PM EDT) ETHANOL <10 <10 mg/dL [facility] Blood 12/14/2024 10:4 1 PM EDT 12/14/2024 10:44 PM EDT Irina CHILDS-Marvin LAB BLOOD ORDERABLES Final Result Performing Organization Address City/[facility]/ZIP Co de Phone Number [address] [address] * HCG, serum qualitative (12/14/2024 10:41 PM EDT) HCG, QUALITATIVE Negative Negative IU/L [facility] Blood 12/14/2024 10:4 1 PM EDT 12/14/2024 10:44 PM EDT [facility] AM[facility]-C LAB BLOOD ORDERABLES Final Result Performing Organization Address [facility] de Phone Number [address] [address] * CBC and differential (12/14/2024 10:41 PM EDT) WBC 10.32 4.00 - 11.00 K/uL [facility] RBC 4.65 4.00 - 5.20 M/uL [facility] HGB 13.5 12.0 - 16.0 g/dL [facility] HCT 41.7 36.0 - 46.0 % [facility] PLT 282 150 - 450 K/uL [facility] MCV 89.7 80.0 - 100.0 fL [facility] MCH 29.0 27.0 - 31.0 pg [facility] MCHC 32.4 32.0 - 36.0 g/dL [facility] RDW 13.2 11.5 - 14.5 % [facility] MPV 10.0 8.4 - 12.0 fL [facility] NRBC 0.00 0.00 /100 WBCs [facility] ABSOLUTE NRBC 0.00 0.00 K/uL [facility] DIFF METHOD Auto [facility] NEUTS 60.8 48.0 - 76.0 % [facility] LYMPHS 29.4 18.0 - 41.0 % [facility] MONOS 7.3 4.0 - 11.0 % [facility] EOS 1.1 0.0 - 5.0 % [facility] BASOS 1.1 0.0 - 1.5 % [facility] Granulocytes, immature (%) 0.3 0.0 - 0.9 % [facility] ABSOLUTE NEUTS 6.29 1.92 - 7.60 K/uL [facility] ABSOLUTE LYMPHS 3.03 0.72 - 4.10 K/uL [facility] ABSOLUTE MONOS 0.75 0.16 - 1.10 K/uL [facility] ABSOLUTE EOS 0.11 0.00 - 0.50 K/uL [facility] ABSOLUTE BASOS 0.11 0.00 - 0.15 K/uL [facility] Granulocytes, immature 0.03 0.00 - 0.09 K/uL [facility] Blood 12/14/2024 10:4 1 PM EDT 12/14/2024 10:44 PM EDT Irina CHILDS-C LAB BLOOD ORDERABLES Final Result Performing Organization Address City/[facility]/ZIP Co de Phone Number [address] [address] * Magnesium (12/14/2024 10:41 PM EDT) MAGNESIUM 2.3 1.6 - 2.6 mg/dL [facility] Blood 12/14/2024 10:4 1 PM EDT 12/14/2024 10:44 PM EDT [facility] LAB BLOOD ORDERABLES Final Result [address] [address] * Basic metabolic panel (12/14/2024 10:41 PM EDT) SODIUM 141 133 - 146 mmol/L [facility] CHLORIDE 106 96 - 108 mmol/L [facility] POTASSIUM 3.9 3.3 - 5.1 mmol/L [facility] CO2 22 21 - 35 mmol/L [facility] BUN 11 6 - 19 mg/dL [facility] CREATININE 0.60 0.5 - 1.5 mg/dL [facility] GLUCOSE 93 70 - 99 mg/dL [facility] CALCIUM 9.4 8.4 - 10.3 mg/dL [facility] EGFR 117 >59 mL/min/1.7 3m2 [facility] Comment:Estimated glomerular filtration rate calculated using the CKD-EPI refit equation. ANION GAP 17 10 - 20 mmol/L [facility] Blood 12/14/2024 10:4 1 PM EDT 12/14/2024 10:44 PM EDT us Irina Mackey PA-C LAB BLOOD ORDERABLES Final Result Performing Organization Address City/State/[facility] Co de Phone Number [facility] [address] [place] [address] * CT CERVICAL SPINE WITHOUT CONTRAST (12/14/2024 10:35 PM EDT) Anatomical Region Laterality Modality C-spine Computed Tomogra phy 12/14/2024 11:0 9 PM EDT Impressions 12/15/2024 12:32 AM EDT 1. No acute intracranial findings. 2. No acute maxillofacial fracture. 3. No acute fracture or traumatic malalignment of the cervical spine. ATTESTATION: I, Jimi Sofia as teaching physician, have reviewed the images for this case and if necessary edited the report originally created by Jhony Lopez. Narrative 12/15/2024 12:[address] HEAD WITHOUT CONTRAST, CT FACE WITHOUT CONTRAST, CT CERVICAL SPINE WITHOUT CONTRAST Referring clinician's provided indication for this examination in Epic: Head trauma, mod-severe; Facial trauma; Neck trauma, dangerous injury mechanism (Age 16-64y) TECHNIQUE: CTs of the head, face, and cervical spine were performed without intravenous contrast using tailored dose modulation techniques. Images were reconstructed in the axial, coronal, and sagittal planes. COMPARISON: None. FINDINGS: HEAD: Brain Parenchyma: No midline shift, mass effect, parenchymal hemorrhage, or evidence of acute territorial infarct. Ventricular System and Extra-Axial Spaces: No extra-axial fluid collections. Basal cisterns are patent. No hydrocephalus. Osseous and Extracranial Structures: No calvarial fracture or significant soft tissue hematoma. FACE: Bones: No acute fracture. Orbits: No orbital injury. Paranasal Sinuses and Mastoids: Mucous retention cyst in the left maxillary sinus. Bilateral mastoid air cells are clear. Soft Tissues: No significant soft tissue hematoma. CERVICAL SPINE: Alignment and Vertebrae: Alignment is normal. Vertebral bodies and posterior elements are intact. Discs and Endplates: Normal. No disc height loss or endplate irregularities. Craniocervical Junction: Alignment is normal. No fracture. Other Findings: None. Procedure Note Jimi Sofia MD - 12/15/2024 CT HEAD WITHOUT CONTRAST, CT FACE WITHOUT CONTRAST, CT CERVICAL SPINEWITHOUT CONTRAST Referring clinician's provided indication for this examination in Epic:Head trauma, mod-severe; Facial trauma; Neck trauma, dangerous injurymechanism (Age 16-64y) TECHNIQUE: CTs of the head, face, and cervical spine were performedwithout intravenous contrast using tailored dose modulation techniques.Images were reconstructed in the axial, coronal, and sagittal planes. COMPARISON: None. FINDINGS: HEAD: Brain Parenchyma: No midline shift, mass effect, parenchymal hemorrhage,or evidence of acute territorial infarct. Ventricular System and Extra-Axial Spaces: No extra-axial fluidcollections. Basal cisterns are patent. No hydrocephalus. Osseous and Extracranial Structures: No calvarial fracture or significantsoft tissue hematoma. FACE: Bones: No acute fracture. Orbits: No orbital injury. Paranasal Sinuses and Mastoids: Mucous retention cyst in the leftmaxillary sinus. Bilateral mastoid air cells are clear. Soft Tissues: No significant soft tissue hematoma. CERVICAL SPINE: Alignment and Vertebrae: Alignment is normal. Vertebral bodies andposterior elements are intact. Discs and Endplates: Normal. No disc height loss or endplateirregularities. Craniocervical Junction: Alignment is normal. No fracture. Other Findings: None. IMPRESSION: 1. No acute intracranial findings. 2. No acute maxillofacial fracture. 3. No acute fracture or traumatic malalignment of the cervical spine. ATTESTATION: Jimi Horowitz as teaching physician, have reviewed theimages for this case and if necessary edited the report originally createdby Jhony Lopez. Irina Mackey PA-C IMG CT XSPECIALTY ORDERABLE S Final Result * CT FACE WITHOUT CONTRAST (12/14/2024 10:35 PM EDT) Anatomical Region Laterality Modality Face Computed Tomogra phy 12/14/2024 11:0 9 PM EDT Impressions 12/15/2024 12:32 AM EDT 1. No acute intracranial findings. 2. No acute maxillofacial fracture. 3. No acute fracture or traumatic malalignment of the cervical spine. ATTESTATION: I, iJmi Sofia as teaching physician, have reviewed the images for this case and if necessary edited the report originally created by Jhony Lopez. Narrative 12/15/2024 12:[address] HEAD WITHOUT CONTRAST, CT FACE WITHOUT CONTRAST, CT CERVICAL SPINE WITHOUT CONTRAST Referring clinician's provided indication for this examination in Epic: Head trauma, mod-severe; Facial trauma; Neck trauma, dangerous injury mechanism (Age 16-64y) TECHNIQUE: CTs of the head, face, and cervical spine were performed without intravenous contrast using tailored dose modulation techniques. Images were reconstructed in the axial, coronal, and sagittal planes. COMPARISON: None. FINDINGS: HEAD: Brain Parenchyma: No midline shift, mass effect, parenchymal hemorrhage, or evidence of acute territorial infarct. Ventricular System and Extra-Axial Spaces: No extra-axial fluid collections. Basal cisterns are patent. No hydrocephalus. Osseous and Extracranial Structures: No calvarial fracture or significant soft tissue hematoma. FACE: Bones: No acute fracture. Orbits: No orbital injury. Paranasal Sinuses and Mastoids: Mucous retention cyst in the left maxillary sinus. Bilateral mastoid air cells are clear. Soft Tissues: No significant soft tissue hematoma. CERVICAL SPINE: Alignment and Vertebrae: Alignment is normal. Vertebral bodies and posterior elements are intact. Discs and Endplates: Normal. No disc height loss or endplate irregularities. Craniocervical Junction: Alignment is normal. No fracture. Other Findings: None. Procedure Note Jimi Sofia MD - 12/15/2024 CT HEAD WITHOUT CONTRAST, CT FACE WITHOUT CONTRAST, CT CERVICAL SPINEWITHOUT CONTRAST Referring clinician's provided indication for this examination in Epic:Head trauma, mod-severe; Facial trauma; Neck trauma, dangerous injurymechanism (Age 16-64y) TECHNIQUE: CTs of the head, face, and cervical spine were performedwithout intravenous contrast using tailored dose modulation techniques.Images were reconstructed in the axial, coronal, and sagittal planes. COMPARISON: None. FINDINGS: HEAD: Brain Parenchyma: No midline shift, mass effect, parenchymal hemorrhage,or evidence of acute territorial infarct. Ventricular System and Extra-Axial Spaces: No extra-axial fluidcollections. Basal cisterns are patent. No hydrocephalus. Osseous and Extracranial Structures: No calvarial fracture or significantsoft tissue hematoma. FACE: Bones: No acute fracture. Orbits: No orbital injury. Paranasal Sinuses and Mastoids: Mucous retention cyst in the leftmaxillary sinus. Bilateral mastoid air cells are clear. Soft Tissues: No significant soft tissue hematoma. CERVICAL SPINE: Alignment and Vertebrae: Alignment is normal. Vertebral bodies andposterior elements are intact. Discs and Endplates: Normal. No disc height loss or endplateirregularities. Craniocervical Junction: Alignment is normal. No fracture. Other Findings: None. IMPRESSION: 1. No acute intracranial findings. 2. No acute maxillofacial fracture. 3. No acute fracture or traumatic malalignment of the cervical spine. ATTESTATION: I, Jimi Sofia as teaching physician, have reviewed theimages for this case and if necessary edited the report originally createdby Jhony Lopez. us Irina Mackey PA-C IMG CT HEAD/NECK Final Resu lt * CT HEAD WITHOUT CONTRAST (12/14/2024 10:35 PM EDT) Anatomical Region Laterality Modality Head Computed Tomogra phy 12/14/2024 11:0 9 PM EDT Impressions 12/15/2024 12:32 AM EDT 1. No acute intracranial findings. 2. No acute maxillofacial fracture. 3. No acute fracture or traumatic malalignment of the cervical spine. ATTESTATION: I, Jimi Sofia as teaching physician, have reviewed the images for this case and if necessary edited the report originally created by Jhony Lopez. Narrative 12/15/2024 12:[address] HEAD WITHOUT CONTRAST, CT FACE WITHOUT CONTRAST, CT CERVICAL SPINE WITHOUT CONTRAST Referring clinician's provided indication for this examination in [facility]: Head trauma, mod-severe; Facial trauma; Neck trauma, dangerous injury mechanism (Age 16-64y) TECHNIQUE: CTs of the head, face, and cervical spine were performed without intravenous contrast using tailored dose modulation techniques. Images were reconstructed in the axial, coronal, and sagittal planes. COMPARISON: None. FINDINGS: HEAD: Brain Parenchyma: No midline shift, mass effect, parenchymal hemorrhage, or evidence of acute territorial infarct. Ventricular System and Extra-Axial Spaces: No extra-axial fluid collections. Basal cisterns are patent. No hydrocephalus. Osseous and Extracranial Structures: No calvarial fracture or significant soft tissue hematoma. FACE: Bones: No acute fracture. Orbits: No orbital injury. Paranasal Sinuses and Mastoids: Mucous retention cyst in the left maxillary sinus. Bilateral mastoid air cells are clear. Soft Tissues: No significant soft tissue hematoma. CERVICAL SPINE: Alignment and Vertebrae: Alignment is normal. Vertebral bodies and posterior elements are intact. Discs and Endplates: Normal. No disc height loss or endplate irregularities. Craniocervical Junction: Alignment is normal. No fracture. Other Findings: None. Procedure Note Jimi Sofia MD - 12/15/2024 CT HEAD WITHOUT CONTRAST, CT FACE WITHOUT CONTRAST, CT CERVICAL SPINEWITHOUT CONTRAST Referring clinician's provided indication for this examination in [facility]:Head trauma, mod-severe; Facial trauma; Neck trauma, dangerous injurymechanism (Age 16-64y) TECHNIQUE: CTs of the head, face, and cervical spine were performedwithout intravenous contrast using tailored dose modulation techniques.Images were reconstructed in the axial, coronal, and sagittal planes. COMPARISON: None. FINDINGS: HEAD: Brain Parenchyma: No midline shift, mass effect, parenchymal hemorrhage,or evidence of acute territorial infarct. Ventricular System and Extra-Axial Spaces: No extra-axial fluidcollections. Basal cisterns are patent. No hydrocephalus. Osseous and Extracranial Structures: No calvarial fracture or significantsoft tissue hematoma. FACE: Bones: No acute fracture. Orbits: No orbital injury. Paranasal Sinuses and Mastoids: Mucous retention cyst in the leftmaxillary sinus. Bilateral mastoid air cells are clear. Soft Tissues: No significant soft tissue hematoma. CERVICAL SPINE: Alignment and Vertebrae: Alignment is normal. Vertebral bodies andposterior elements are intact. Discs and Endplates: Normal. No disc height loss or endplateirregularities. Craniocervical Junction: Alignment is normal. No fracture. Other Findings: None. IMPRESSION: 1. No acute intracranial findings. 2. No acute maxillofacial fracture. 3. No acute fracture or traumatic malalignment of the cervical spine. ATTESTATION: I, Jimi Sofia as teaching physician, have reviewed theimages for this case and if necessary edited the report originally createdby Jhony Lopez. us Irina Mackey PA-C IMG CT HEAD/NECK Final Resu lt from Last 3 Months [facility] S[facility] [address] SAFETY NET PARTIAL [facility] NON NSPG PCP SILVER [employer] [facility] Taskforce [employer] PARTIAL [facility] NON NSPG PCP S[employer] SAFETY NET PARTIAL [facility] NON NSPG PCP [employer] Member Subscriber Plan / Payer (Ef fective 2017-Present) Name:Lazara Zapata Relation to Subscriber:Self Name:Lazara Zapata Payer ID:[id number] Type:HMO Address: [address] NET PARTIAL [facility] NON NSPG PCP [employer] [facility] S[employer]ET[employer] NET PARTIAL [employer] NON NSPG PCP S[employer] [facility] S[employer] NET PARTIAL [employer] NON NSPG PCP S[employer]VER [employer] [facility] S[employer] [place] [address] [place] [address] [facility] Member Subscriber Plan / Payer (Ef fective 2017-Present) Name:Lazara Zapata Relation to Subscriber:Self Name:Lazara Zapata Payer ID:[id number] Type:O Address: [address] NET PARTIAL [employer] NON [employer]SP[employer] [facility] [address] NET PARTIAL Care Teams Plant Control Aide Relationship Specialty Start Date End Date Pcp, Unknown PCP - General 12/08/21 Additional Source Comments The information contained in this document represents components of the legal health record. It is not the complete legal health record.[facility]
== END 2025-02-18 09:05 | disposition home or self-care (01) ==
LOC: HO.NEURO 09:04
PROVIDERS: PCP Registered Nurse; Visit Provider Registered Nurse
DX: R20.0 Anesthesia of skin (principal); R20.2 Paresthesia of skin
CPT/HCPCS: 95886; 95913

== ENCOUNTER → 2025-02-18 09:09 | Outpatient (BNV) | payer MEDICAID, SELFPAY | PROVIDERS: PCP Registered Nurse; Visit Provider Psychiatry & Neurology Neurology | DX: R20.0 Anesthesia of skin (principal); R20.2 Paresthesia of skin | CPT/HCPCS: 95886; 95913 ==